=== PATIENT | male | born 1945 | race Caucasian/White ===

== ENCOUNTER 2018-06-10 17:13 | Outpatient (REF) | payer OTHER, SELFPAY ==
[2018-06-10 20:20] LABS: Microalb ug/mg Crea 55.3 ug/mg Cr
== END 2018-06-10 17:33 ==
LOC: NCHCN 17:13
PROVIDERS: PCP Internal Medicine; Visit Provider Physician Assistant Medical
DX: E11.9 Type 2 diabetes mellitus without complications (principal)
CPT/HCPCS: 82043; 82570